=== PATIENT | male | born 1950 | race Caucasian/White ===

== ENCOUNTER → 2019-02-08 | Outpatient (CLI) | payer BC ==
[~2019-02-08] MED LIST: ALB6.7R INH; ASP325 PO; ASPI-757 PO; ATOR20TA22 PO; CET10 PO; MON10 PO; MULT1CAP41 PO; VIT1TABL83 PO; [UNRECOGNIZED DRUG - CODE] PO
--- NOTE | 2019-02-08 08:58 | RADIOLOGY IMAGING REPORT ---
FACILITY: [facility] - [place] PATIENT NAME: Justin Toro : 1950 MR: [id number] V: [id number] EXAM DATE: ORDERING PHYSICIAN: SILVERIO HOFF TECHNOLOGIST: Location: [facility] [place] Patient: Justin Toro : 1950 Visit/Account:[id number] Date of Sevice: 02/08/2019 Lumbar spine Indication: Low back pain. Comparison: None available FINDINGS: 4 views of the lumbar spine were obtained. There are 5 lumbar type vertebral bodies. Posterior L4-L5 fusion hardware with apparent bony fusion of L4 on L5. There is approximately 11 mm anterolisthesis of L4 on L5 without visualized movement between the flexion and extension views There is no acute osseous or acute alignment abnormality. 5 mm anterolisthesis of L3 on L4 without significant movement between flexion and extension views. 5 mm retrolisthesis of L1 on L2 which measures approximately 6 mm with extension and 3 mm with flexio n. No additional spondylolisthesis. The vertebral body heights appear well-maintained. Mild/moderate disc space loss at T12-L1 and L3-L4. Otherwise, no significant disc space loss. Mild multifocal endplate irregularity and small marginal osteophytes. Mild facet arthropathy. Minimal dextroscoliosis. IMPRESSION: 1. No acute osseous or acute alignment abnormality of the lumbar spine. 2. Unremarkable appearance of L4-L5 fusion hardware. 3. Grade 1 anterolisthesis of L3 on L4 without visualized movement. 4. Grade 1 retrolisthesis of L1 on L2 with mild movement between flexion and extension views. 5. Additional chronic findings, as above. Report Dictated By: Anil Madden MD at 02/08/2019 8:48 AM Report E-Signed By: Anil Madden MD at 02/08/2019 8:53 AM WSN:[email or web address]
--- NOTE | 2019-02-08 12:27 | RADIOLOGY IMAGING REPORT ---
FACILITY: [facility] - [place] PATIENT NAME: Justin Toro : 1950 MR: [id number] V: [id number] EXAM DATE: ORDERING PHYSICIAN: SILVERIO HOFF TECHNOLOGIST: Location: [facility] Patient: Justin Toro : 1950 Visit/Account:[id number] Date of Sevice: 02/08/2019 EXAMINATION: L SPINE W/O CONTRAST INDICATION: Intervertebral disc displacement COMPARISON: None available TECHNIQUE: Multiplane MR imaging was performed through the lumbar spine without contrast. FINDINGS: Vertebral bodies and posterior elements: Normal vertebral body heights. L4 laminectomy defect. 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 Conus position/signal: Normal Marrow signal: Mild degenerative edema surrounds the L1-2 and L3-4 disc spaces. Posterior fusion hard covington at L4 and L5. Extraspinal structures including psoas muscles/paraspinal soft tissues: Normal L1-2: Small disc protrusion, slight left lateral recess narrowing, moderate bilateral foraminal narro wing. L2-3: Minimal disc protrusion, mild to moderate facet arthropathy, ligamentum flavum thickening, mild canal narrowing, moderate bilateral foraminal narrowing. L3-4: Moderate disc space degeneration, slight anterolisthesis of L3 on L4, small disc protrusion, mo derate to severe facet arthropathy and ligamentum flavum thickening. Severe canal narrowing best visu alized on the axial acquisitions. Severe bilateral foraminal narrowing. L4-5: Partially fused disc space. Grade 1 anterolisthesis of L4 on L5. No disc protrusion. Moderate t o severe facet arthropathy. Synovial cyst within the left posterior aspect of the canal at the lower L4 level measures 7 mm craniocaudad by 7 mm transverse. This synovial cyst effaces the left lateral r ecess at the lower left L4 level. Moderate to severe canal narrowing best visualized on the axial acq uisitions. Mild bilateral foraminal narrowing. L5-S1: Small disc protrusion, moderate facet arthropathy, no canal narrowing, moderate bilateral fora sangeetha narrowing. IMPRESSION: 1. Posterior fusion hardware at L4 and L5. 2. Severe L3-4 canal narrowing secondary to the constellation of findings described above. 3. Moderate to severe L4-5 canal narrowing secondary to the constellation of findings described above . 4. 7 x 7 mm synovial cyst within the left posterior aspect of the canal at the lower L4 level effaces the left lateral recess. 5. Multilevel foraminal narrowing, see level by level comments above. 5. Moderate to severe L3-4 and L4-5 facet arthropathy. Report Dictated By: Anil Robins MD at 02/08/2019 12:11 PM Report E-Signed By: Anil Robins MD at 02/08/2019 12:22 PM WSN:[email or web address]
== END ==
LOC: MRI 00:22
PROVIDERS: ATTEND Neurological Surgery
DX: M71.38 Other bursal cyst, other site (principal); M46.86 Other specified inflammatory spondylopathies, lumbar region; Z98.890 Other specified postprocedural states
CPT/HCPCS: 72120; 72148